=== PATIENT | female | born 1955 | race Caucasian/White ===

== ENCOUNTER → 2017-07-25 | Outpatient (CLI) | payer OTHER ==
[~2017-07-25] MED LIST: ACYCLOVIR800 MG PO; ATORVASTATIN CA20 M1 PO; BENTYL10 MG PO; BROMFED DM COU118 ML PO; CITALOPRAM HYDR20 MG PO; FLEXERIL10 M1 PO; GABAPENTIN300 MG PO; IBUPROFEN 600M600 MG PO; IBUPROFEN800 MG PO; LEVOTHYROXINE0.05 MG PO; LORTAB 5/500 501 TAB PO; MEDROL 4MG. DOSE4 MG PO; MELOXICAM15 MG PO; MIRALAX PO255 GM/BOT PO; MIRALAX17 GM/PACK PO; PHENERGAN 25MG.25 M1 PO; PREDNISONE 20MG20 MG PO; RANITIDINE HCL150 MG PO; SPIRIVA HA1 PUFF/INH IH; TESSALON PERLE100 MG PO; TRAMADOL 50MG T50 MG PO; VENLAFAXINE HCL75 M1 PO; VENTOLIN H0.09 MG/AC IH; ZITHROMAX 250M250 MG PO; ZITHROMAX Z PA250 MG PO
--- NOTE | 2017-07-25 17:29 | RADIOLOGY REPORT PS360 ---
CHEST(2 VIEWS-NOT PORTABLE) HISTORY: COUGH ORDERING PHYSICIAN: ELIDIA DENIS APRN PATIENT AGE: 62 years COMPARISON: [id number] FINDINGS: The cardiomediastinal silhouette and pulmonary vascularity are within normal limits. The lungs are clear without infiltrates, suspicious nodules, or pleural effusions. No acute bony abnormalities. IMPRESSION: Negative chest, no acute finding
== END ==
LOC: RAD 16:53
DX: J44.1 Chronic obstructive pulmonary disease with (acute) exacerbation (principal); R05 Cough